=== PATIENT | male | born 1985 | race Caucasian/White ===

== ENCOUNTER 2019-05-17 15:04 | Emergency (ER) | payer BC, MEDICAID ==
[2019-05-17 15:25] VITALS: BP 117/85
--- NOTE | 2019-05-17 15:52 | UC ---
General HPI - HPI Summary HPI Summary: R eye mildly red last pm. this am, more red, tearing and crusting. no injury, pain or visual disturbance. no contact use. no sneezing or itchy eyes. - History of Current Complaint Chief Complaint: UCEye Stated Complaint: RIGHT EYE CONCERN Time Seen by Provider: 05/17/19 15:44 Hx Obtained From: Patient Onset/Duration: Gradual Onset Timing: Constant Pain Intensity: 0 Associated Signs & Symptoms: Negative: Fever, Headache - Allergy/Home Medications Allergies/Adverse Reactions: Allergies Allergy/AdvReac Type Severity Reaction Status Date / Time No Known Allergies Allergy Verified 05/17/19 15:18 Home Medications: Home Medications Albuterol 2.5MG/3ML (0.083%)* [Ventolin 2.5 MG/3 ML NEB.PRIYANKA*] 1 puff Q6HR PRN [History Confirmed 05/17/19] Albuterol HFA INHALER* [Ventolin HFA Inhaler*] 1 puff Q6HR PRN 05/17/19 [ History Confirmed 05/17/19] Esomeprazole(NF) [NexIUM(NF)] 40 mg PO DAILY 05/17/19 [History Confirmed ] Fenofibrate 1 tab DAILY 05/17/19 [History Confirmed 05/17/19] Fexofenadine (NF) [Hilda 180 (NF)] 180 mg PO DAILY 05/17/19 [History Confirmed 05/17/19] Fluticasone-Salmeterol 250-50* [Advair Diskus 250-50*] 1 puff INH BID 05/17/19 [ History Confirmed 05/17/19] Levothyroxine TAB* [Synthroid TAB*] 50 mcg PO 1400 05/17/19 [History Confirmed 05/17/19] Montelukast Sodium TAB* [Singulair TAB*] 10 mg PO BEDTIME 05/17/19 [History Confirmed 05/17/19] PMH/Surg Hx/FS Hx/Imm Hx - Additional Past Medical History Additional PMH: allergies Endocrine History: Thyroid Disease Respiratory History: Asthma GI/ History: Gastroesophageal Reflux - Surgical History Surgical History: Yes Surgery Procedure, Year, and Place: HERNIA REPAIR - Social History Lives: With Family Alcohol Use: None Substance Use Type: None Smoking Status (MU): Never Smoked Tobacco Review of Systems All Other Systems Reviewed And Are Negative: No Constitutional: Negative: Fever Skin: Negative: Rash Eyes: Positive: Drainage, Eye Redness. Negative: Blurred Vision, Diplopia, Photophobia ENT: Negative: Sore Throat, Ear Ache, Sinus Congestion Neurological: Negative: Headache Physical Exam Triage Information Reviewed: Yes Appearance: Well-Appearing Vital Signs: Initial Vital Signs Temp 97.7 F 05/17/19 15:21 Pulse 81 05/17/19 15:21 Resp 16 05/17/19 15:21 BP 117/85 05/17/19 15:21 Pulse Ox 100 05/17/19 15:21 Vital Signs Reviewed: Yes Eyes: Positive: Other: - No auricular adenopathy. No periorbital edema of rash. Conjunctiva R is red and swollen, eye is watery. Conjunctiva L is clear. PERRL. EOMI. AC's clear. No FB's. ENT: Positive: Pharynx normal, TMs normal. Negative: Nasal drainage Neck: Positive: Supple, Nontender, No Lymphadenopathy Respiratory: Positive: Lungs clear Cardiovascular: Positive: RRR, Murmur:Sys:Grade _?_/ - III Abdomen Description: Positive: Nontender Neurological: Positive: Alert Psychological: Positive: Age Appropriate Behavior Skin Exam: Normal Skin: Negative: Rashes Course/Dx - Differential Dx - Multi-Symptom Differential Diagnoses: Other - no concern for periorbital cellulitis or corneal ulcer. no FB's seen. exam c/w conjunctival chemosis and conjunctivitis. - Diagnoses Provider Diagnosis: Conjunctivitis Discharge - Sign-Out/Discharge Documenting (check all that apply): Patient Departure All imaging exams completed and their final reports reviewed: No Studies - Discharge Plan Condition: Stable Disposition: HOME Prescriptions: Polymyx/Trimethoprim OPTH* [Polytrim OPHTH*] 1 drop RIGHT EYE Q3H 7 Days #1 btl Patient Education Materials: Conjunctivitis (ED) Referrals: Jigna Gimenez MD [Primary Care Provider] - Additional Instructions: Follow up with your primary care or ophthalmology provider if not better in 5-7 days or sooner if worse. - Billing Disposition and Condition Condition: STABLE Disposition: Home
== END 2019-05-17 16:01 | disposition home or self-care (01) ==
LOC: UCCORT 15:04
DX: H10.9 Unspecified conjunctivitis (principal); J45.909 Unspecified asthma, uncomplicated; E07.9 Disorder of thyroid, unspecified; K21.9 Gastro-esophageal reflux disease without esophagitis
CPT/HCPCS: 99212; G0463